=== PATIENT | female | born 1940 | race Caucasian/White ===

== ENCOUNTER 2019-10-29 19:47 | Inpatient (IN) ==
[2019-10-29 22:22] LABS: Adenovirus Not Detected (Not Detect); Bordetella Pertussis Not Detected (Not Detect); Chlamydophila pneumoniae Not Detected (Not Detect); Coronavirus 229E Not Detected (Not Detect); Coronavirus HKU1 Not Detected (Not Detect); Coronavirus NL63 Not Detected (Not Detect); Coronavirus OC43 Not Detected (Not Detect); Human Metapneumovirus Not Detected (Not Detect); Human Rhinovirus/Enterovirus Not Detected (Not Detect); Influenza A Subtype 2009 H1 Not Detected (Not Detect); Influenza B Not Detected (Not Detect); Mycoplasma pneumoniae Not Detected (Not Detect); Parainfluenza Virus 1 Not Detected (Not Detect); Parainfluenza Virus 2 Not Detected (Not Detect); Parainfluenza Virus 3 Not Detected (Not Detect); Parainfluenza Virus 4 Not Detected (Not Detect); Respiratory Syncytial Virus Not Detected (Not Detect)
[2019-10-29] MEDS ORDERED: Naloxone 0.4 MG/ML INJ IVP PRN (22:47)
[2019-10-30] MEDS ORDERED: 0.9 % Sodium Chloride 1,000 ML IVC SCH (01:00)
[2019-10-30] MEDS ORDERED: Potassium Chloride 40 MEQ, Lidocaine 1% 2 ML in 0.9 % Sodium Chloride 500 ML IVPB ONE (01:13)
[2019-10-30] MEDS ORDERED: Perflutren Lipid Microsphere 1.3 ML in 0.9 % Sodium Chloride 8.7 ML IVP PRN (01:14)
[2019-10-30] MEDS ORDERED: *HR* Promethazine 25 MG/ML VIAL IVP PRN (01:34)
[2019-10-30 01:41] LABS: BUN/Creatinine Ratio 26 (6-26); Blood Urea Nitrogen 14 mg/dL (8-23); Calcium 9.3 mg/dL (8.6-10.3); Carbon Dioxide 24 mEq/L (23-29); Chloride 103 mEq/L (98-107); Creatine Kinase 361 Units/L (30-223); Glucose 122 mg/dL (70-105); Magnesium 1.6 mg/dL (1.6-2.6); Osmolality,Calculated 298 (280-300); Phosphorous 3.2 mg/dL (2.7-4.5); Sodium 143 mEq/L (136-145); eGFR For African Americans > 60 (> 60); eGFR For Non-African Americans > 60 (> 60)
[2019-10-30 01:56] LABS: Troponin I 0.37 ng/mL (< 0.04)
[2019-10-30 02:10] LABS: Alanine Aminotransferase 27 Units/L (7-52); Albumin 3.6 g/dL (3.5-5.7); Alkaline Phosphatase 58 Units/L (34-104); Aspartate Amino Transferase 38 Units/L (13-39); BUN/Creatinine Ratio 26 (6-26); Bilirubin,Total 2.6 mg/dL (0.3-1.0); Blood Urea Nitrogen 14 mg/dL (8-23); Calcium 9.3 mg/dL (8.6-10.3); Carbon Dioxide 24 mEq/L (23-29); Chloride 102 mEq/L (98-107); Globulin 1.8 g/dL (2.4-3.5); Glucose 124 mg/dL (70-105); Magnesium 1.6 mg/dL (1.6-2.6); Osmolality,Calculated 296 (280-300); Phosphorous 3.1 mg/dL (2.7-4.5); Potassium 2.9 mEq/L (3.5-5.1); Sodium 142 mEq/L (136-145); Total Protein 5.4 g/dL (6.4-8.9); Troponin I 0.35 ng/mL (< 0.04); eGFR For African Americans > 60 (> 60); eGFR For Non-African Americans > 60 (> 60)
[2019-10-30 06:06] LABS: Basophils % 0.3 %; Eosinophils % 0.1 %; Hematocrit 31.3 % (35.3-44.9); Hemoglobin 10.4 g/dL (11.5-15.4); Immature Granulocytes % 0.6 % (0-4); Lymphocytes # 2.1 K/mcL (0.6-4.6); Lymphocytes % 21.5 %; Mean Corpuscular HGB Conc 33.2 g/dL (31.6-35.5); Mean Corpuscular Hemoglobin 27.3 pg (28.0-33.3); Mean Corpuscular Volume 82.2 fL (83.0-100.0); Mean Platelet Volume 11.4 fL (9.4-12.4); Monocytes # 0.9 K/mcL (0.0-1.3); Monocytes % 8.9 %; Neutrophils # 6.8 K/mcL (1.6-8.9); Platelet Count 172 K/mcL (140-400); Red Blood Count 3.81 M/mcL (3.82-4.97); Red Cell Distribution Width 16.3 % (11.5-14.5); Segmented Neutrophils % 68.6 %; White Blood Count 9.9 K/mcL (4.3-11.1)
[2019-10-30 06:07] LABS: INR 1.1
[2019-10-30 06:10] LABS: Activated Partial Thrombo Time 26.7 Seconds (26.0-36.0)
[2019-10-30] MEDS: *HR* Heparin 5,000 UNIT/ML VIAL SQ SCH ×3 (06:25→22:46)
[2019-10-30 07:07] LABS: BUN/Creatinine Ratio 26 (6-26); Blood Urea Nitrogen 14 mg/dL (8-23); Calcium 8.9 mg/dL (8.6-10.3); Carbon Dioxide 29 mEq/L (23-29); Chloride 104 mEq/L (98-107); Glucose 112 mg/dL (70-105); Magnesium 2.1 mg/dL (1.6-2.6); Osmolality,Calculated 297 (280-300); Potassium 2.9 mEq/L (3.5-5.1); Sodium 143 mEq/L (136-145); eGFR For African Americans > 60 (> 60); eGFR For Non-African Americans > 60 (> 60)
[2019-10-30 08:10] LABS: Hepatitis B Surface Antigen Nonreactive (Nonreactive)
[2019-10-30 08:39] LABS: Hepatitis A Antibody IgM Nonreactive (Nonreactive); Hepatitis B Core IgM Nonreactive (Nonreactive); Hepatitis C Virus Antibody Nonreactive (Nonreactive)
[2019-10-30] MEDS: cefTRIAXone 1,000 MG in Water for inj. (sterile) 10 ML IVP SCH (12:19)
[2019-10-31 03:27] LABS: Hematocrit 30.1 % (35.3-44.9); Hemoglobin 9.8 g/dL (11.5-15.4)
[2019-10-31 03:48] LABS: % Iron Saturation 21 % (15-50); BUN/Creatinine Ratio 28 (6-26); Blood Urea Nitrogen 17 mg/dL (8-23); Calcium 8.7 mg/dL (8.6-10.3); Carbon Dioxide 27 mEq/L (23-29); Chloride 107 mEq/L (98-107); Glucose 157 mg/dL (70-105); Iron 47 mcg/dL (50-170); Osmolality,Calculated 299 (280-300); Potassium 2.7 mEq/L (3.5-5.1); Sodium 142 mEq/L (136-145); Transferrin 161 mg/dL (203-362); eGFR For African Americans > 60 (> 60); eGFR For Non-African Americans > 60 (> 60)
[2019-10-31 03:54] LABS: Troponin I 0.25 ng/mL (< 0.04)
[2019-10-31 04:07] LABS: Ferritin 356 ng/mL (10-120)
[2019-10-31 04:10] LABS: Folate 2.3 ng/mL (3.0-16.0)
[2019-10-31] MEDS: *HR* Heparin 5,000 UNIT/ML VIAL SQ SCH ×3 (06:06→20:32)
[2019-10-31] MEDS ORDERED: Iron Sucrose Complex 200 MG in 0.9 % Sodium Chloride 100 ML IVPB ONE (09:11)
[2019-10-31] MEDS ORDERED: Folic Acid 1 MG TABLET PO SCH (09:15)
[2019-10-31] MEDS: cefTRIAXone 1,000 MG in Water for inj. (sterile) 10 ML IVP SCH (09:39)
[2019-10-31] MEDS ORDERED: 0.9 % Sodium Chloride 500 ML ONE (12:25)
[2019-10-31] MEDS: Acetaminophen 325 MG TABLET PO PRN (13:35)
[2019-10-31] MEDS: amLODIPine 5 MG TABLET PO SCH (17:55)
[2019-11-01] MEDS: *HR* Heparin 5,000 UNIT/ML VIAL SQ SCH ×3 (04:53→22:04)
[2019-11-01 06:50] LABS: Hematocrit 31.3 % (35.3-44.9); Hemoglobin 10.5 g/dL (11.5-15.4)
[2019-11-01 07:16] LABS: BUN/Creatinine Ratio 26 (6-26); Blood Urea Nitrogen 12 mg/dL (8-23); Calcium 9.2 mg/dL (8.6-10.3); Carbon Dioxide 26 mEq/L (23-29); Chloride 108 mEq/L (98-107); Glucose 120 mg/dL (70-105); Osmolality,Calculated 293 (280-300); Potassium 3.6 mEq/L (3.5-5.1); Sodium 141 mEq/L (136-145); eGFR For African Americans > 60 (> 60); eGFR For Non-African Americans > 60 (> 60)
[2019-11-01] MEDS: amLODIPine 5 MG TABLET PO SCH (08:53)
[2019-11-01] MEDS: Folic Acid 1 MG TABLET PO SCH (08:53)
[2019-11-01] MEDS: cefTRIAXone 1,000 MG in Water for inj. (sterile) 10 ML IVP SCH (09:03)
[2019-11-01] MEDS ORDERED: Iron Sucrose Complex 200 MG in 0.9 % Sodium Chloride 100 ML IVPB ONE (12:45)
[2019-11-01] MEDS: lisinopriL 10 MG TABLET PO SCH (15:40)
[2019-11-01] MEDS: Aspirin Enteric Coated 81 MG Tablet PO SCH (15:40)
[2019-11-01] MEDS: Cefdinir 300 MG CAPSULE PO SCH (22:04)
[2019-11-01] MEDS: Acetaminophen 325 MG TABLET PO PRN (22:24)
[2019-11-02] MEDS: *HR* Heparin 5,000 UNIT/ML VIAL SQ SCH ×2 (05:55→13:34)
[2019-11-02 07:58] LABS: Immunoglobulin A 172 mg/dL (68-408); Immunoglobulin G 334 mg/dL (768-1632); Immunoglobulin M 44 mg/dL (35-263)
[2019-11-02] MEDS: lisinopriL 10 MG TABLET PO SCH (09:20)
[2019-11-02] MEDS: Cefdinir 300 MG CAPSULE PO SCH (09:20)
[2019-11-02] MEDS: Aspirin Enteric Coated 81 MG Tablet PO SCH (09:20)
[2019-11-02] MEDS: Acetaminophen 325 MG TABLET PO PRN (09:20)
[2019-11-02] MEDS: Folic Acid 1 MG TABLET PO SCH (09:20)
[2019-11-02 13:42] LABS: Kappa Qnt Free Light Chains 28.36 mg/L (3.30-19.40); Lambda Qnt Free Light Chains 20.52 mg/L (5.71-26.30)
[2019-11-02 16:44] VITALS: BP 142/83
[2019-11-04 15:59] LABS: Alpha 2 Globulin (PEP) 0.52 g/dL (0.48-1.05)
[2019-11-04 17:27] LABS: IFE Reflexed IFE Done; Immunoglobulin A 188 mg/dL (68-408); Immunoglobulin G 345 mg/dL (768-1632); Immunoglobulin M 47 mg/dL (35-263)
== END 2019-11-02 19:47 | DRG 689 ==
LOC: CDU → SUATTDRO 20:56 → 2ANU 22:30
PROVIDERS: ADMIT Student in an Organized Health Care Education/Training Program; ATTEND Internal Medicine